=== PATIENT | male | born 1930 | race Caucasian/White ===

== ENCOUNTER 2017-04-08 10:28 | Emergency (ER) | payer OTHER, BC ==
[~2017-04-08] VITALS: Ht 175.3 cm; Wt 92.1 kg
[2017-04-08] MEDS ORDERED: NORFLEX100 MG PO (13:23)
[2017-04-08] MEDS ORDERED: SENNA-DOCUSATE1 EACH PO (13:23)
[2017-04-08] MEDS ORDERED: NAPROSYN500 MG PO (13:23)
[2017-04-08] MEDS ORDERED: NORCO 5-325 TA1 EACH PO (13:23)
[2017-04-08 14:13] VITALS: BP 152/61
== END 2017-04-08 14:14 | disposition home or self-care (01) ==
LOC: ER 10:28
DX: S39.012A Strain of muscle, fascia and tendon of lower back, initial encounter (principal); E11.9 Type 2 diabetes mellitus without complications; I10 Essential (primary) hypertension; M19.90 Unspecified osteoarthritis, unspecified site; Z88.5 Allergy status to narcotic agent; Z88.0 Allergy status to penicillin; Z79.4 Long term (current) use of insulin; X58.XXXA Exposure to other specified factors, initial encounter; Y93.89 Activity, other specified; Y92.89 Other specified places as the place of occurrence of the external cause; Y99.8 Other external cause status